=== PATIENT | male | born 2000 | race African-American/Black ===

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

== ENCOUNTER 2023-12-01 16:10 | Emergency (ER) | payer OTHER, SELFPAY ==
--- NOTE | 2023-12-01 18:29 | RAD REPORT ---
EXAMINATION: ONE VIEW CHEST XR CLINICAL INDICATION: Male, 23 years old. [facility] MAIN CHEST PAIN Bed Name: 20 TECHNIQUE: Frontal chest projection is submitted. Examination is limited by patient positioning and t echnique. COMPARISON: 05/16/2009 FINDINGS: The lungs are well inflated and clear. No pneumothorax or sizable effusion. The heart is normal in s ize. IMPRESSION: No acute intrathoracic abnormalities.
--- NOTE | 2023-12-01 18:44 | EDPHYS ---
Physician Documentation [facility] Name: Racehl Malloy Age: 23 yrs Sex: Male : 2000 Arrival Date: 12/01/2023 Time: 16:10 Bed 20 Private MD: ED Physician Lucy Mccabe HPI: 11/30 17:53 This 23 yrs old Black Male presents to ER via Ambulatory with complaints of Asthma gb1 Exacerbation, Chest Pain, Shortness Of Breath. 17:53 23-year-old -[place] male with history of asthma here with the right chest gb1 discomfort and wheezing earlier. Patient's significant other states that he asked his mom to bring an inhaler or any concern that he was wheezing on the right side. Patient denies any fever chills or recent illnesses. Pain does not radiate anywhere on the right side of the chest. . Historical: - Allergies: 16:19 No Known Allergies; cm10 - PMHx: 16:19 Asthma; cm10 - Immunization history:: Adult Immunizations up to date. - Infectious Disease History:: Denies. - Social history:: Smoking status: Patient denies any tobacco usage or history of. Exam: 17:53 Constitutional: This is a well developed, well nourished patient who is awake, alert, gb1 and in no acute distress. Head/Face: Normocephalic, atraumatic. Eyes: Pupils equal round and reactive to light, extra-ocular motions intact. Lids and lashes normal. Conjunctiva and sclera are non-icteric and not injected. Cornea within normal limits. Periorbital areas with no swelling, redness, or edema. ENT: Nares patent. No nasal discharge, no septal abnormalities noted. Tympanic membranes are normal and external auditory canals are clear. Oropharynx with no redness, swelling, or masses, exudates, or evidence of obstruction, uvula midline. Mucous membranes moist. Neck: Trachea midline, no thyromegaly or masses palpated, and no cervical lymphadenopathy. Supple, full range of motion without nuchal rigidity, or vertebral point tenderness. No Meningismus. Chest/axilla: Normal chest wall appearance and motion. Nontender with no deformity. No lesions are appreciated. Cardiovascular: Regular rate and rhythm with a normal S1 and S2. No gallops, murmurs, or rubs. Normal PMI, no JVD. No pulse deficits. Respiratory: Lungs have equal breath sounds bilaterally, clear to auscultation and percussion. No rales, rhonchi or wheezes noted. No increased work of breathing, no retractions or nasal flaring. Abdomen/GI: Soft, non-tender, with normal bowel sounds. No distension or tympany. No guarding or rebound. No evidence of tenderness throughout. Skin: Warm, dry with normal turgor. Normal color with no rashes, no lesions, and no evidence of cellulitis. MS/ Extremity: Pulses equal, no cyanosis. Neurovascular intact. Full, normal range of motion. Neuro: Awake and alert, GCS 15, oriented to person, place, time, and situation. Cranial nerves II-XII grossly intact. Motor strength 5/5 in all extremities. Sensory grossly intact. Cerebellar exam normal. Normal gait. Vital Signs: 16:17 BP 124 / 76; Pulse 94; Resp 16; Temp 97.1; Pulse Ox 99% on R/A; Weight 133.81 kg; cm10 Height 5 ft. 9 in. ; Pain 6/10; 18:47 BP 130 / 74; Pulse 88; Resp 17; Pulse Ox 99% on R/A; rs5 16:17 Body Mass Index 43.56 (133.81 kg, 175.26 cm) cm10 16:17 Pain Scale: Adult cm10 MDM: 16:35 Patient medically screened. gb1 17:53 Data reviewed: vital signs, nurses notes, radiologic studies. gb1 11/30 17:32 Order name: Chest Single View XRAY; Complete Time: 18:41 gb1 Administered Medications: No medications were administered Disposition Summary: 12/01/23 18:44 Discharge Ordered Notes: Location: Home gb1 Problem: new gb1 Symptoms: have improved gb1 Condition: Stable gb1 Diagnosis - Chest pain on breathing gb1 Followup: gb1 - With: Private Physician - When: - Reason: If symptoms return Discharge Instructions: - Discharge Summary Sheet gb1 - Nonspecific Chest Pain, Adult gb1 Forms: - Medication Reconciliation Form gb1 - Antibiotic Education gb1 - Prescription Opioid Use gb1 - Patient Portal Instructions gb1 - Leadership Thank You Letter gb1 Signatures: Dispatcher [employer] Silvia Hazel RN RN cm10 Lucy Mccabe MD MD gb1 Corrections: (The following items were deleted from the chart) 17:33 17:33 Chest Single View+[email or web address] ordered. EDMS EDMS
--- NOTE | 2023-12-01 18:44 | ER ---
Nurse's Notes [facility] Name: Rachel Malloy Age: 23 yrs Sex: Male : 2000 Arrival Date: 12/01/2023 Time: 16:10 Bed 20 Private MD: Diagnosis: Chest pain on breathing Presentation: 11/30 16:17 Chief complaint: Patient states: Right sided chest pain onset this morning. Pt cm10 describes the pain as sharp and pressure. Pt rates the pain a 6/10. Pt states that deep breaths make the pain worse. Coronavirus screen: Client denies travel out of the [place] in the last 14 days. At this time, the client does not indicate any symptoms associated with coronavirus-19. Ebola Screen: Patient denies travel to an Ebola-affected area in the 21 days before illness onset. No symptoms or risks identified at this time. Initial Sepsis Screen: Does the patient meet any 2 criteria? HR > 90 bpm. Does the patient have a suspected source of infection? No. Patient's initial sepsis screen is negative. Risk Assessment: Do you want to hurt yourself or someone else? Patient reports no desire to harm self or others. Onset of symptoms was December 01, 2023. 16:17 Method Of Arrival: Ambulatory cm10 16:17 Acuity: ROBERT 3 cm10 Triage Assessment: 16:19 General: Appears in no apparent distress. comfortable, Behavior is calm, cooperative. cm10 Neuro: No deficits noted. Level of Consciousness is awake, alert, obeys commands, Oriented to person, place, time, situation, Appropriate for age. Respiratory: No deficits noted. Airway is patent Respiratory effort is even, unlabored, Respiratory pattern is regular, symmetrical. Historical: - Allergies: 16:19 No Known Allergies; cm10 - PMHx: 16:19 Asthma; cm10 - Immunization history:: Adult Immunizations up to date. - Infectious Disease History:: Denies. - Social history:: Smoking status: Patient denies any tobacco usage or history of. Screenin:22 [facility] ED Fall Risk Assessment (Adult) History of falling in the last 3 months, rs5 including since admission No falls in past 3 months (0 pts) Confusion or Disorientation No (0 pts) Intoxicated or Sedated No (0 pts) Impaired Gait No (0 pts) Mobility Assist Device Used No (0 pt) Altered Elimination No (0 pt) Score/Fall Risk Level 0 - 2 = Low Risk Oriented to surroundings, Maintained a safe environment. Abuse screen: Denies threats or abuse. Nutritional screening: No deficits noted. Tuberculosis screening: No symptoms or risk factors identified. Assessment: 16:22 General: Appears in no apparent distress. uncomfortable, Behavior is calm, cooperative. rs5 Pain: Complains of pain in abdomen Pain does not radiate. Pain currently is 3 out of 10 on a pain scale. Quality of pain is described as aching, Pain began Is continuous. Neuro: Level of Consciousness is awake, alert, obeys commands, Oriented to person, place, time, situation. Cardiovascular: Patient's skin is warm and dry. Rhythm is regular. Respiratory: Airway is patent Respiratory effort is even, unlabored, Respiratory pattern is regular, symmetrical. Respiratory: Reports shortness of breath cough that is. GI: Abdomen is round non-distended, Abd is soft and non tender X 4 quads. : No signs and/or symptoms were reported regarding the genitourinary system. EENT: No signs and/or symptoms were reported regarding the EENT system. Derm: Skin is intact, Skin is pink, warm \T\ dry. Musculoskeletal: Range of motion: intact in all extremities. 17:49 Reassessment: Patient and/or family updated on plan of care and expected duration. Pain rs5 level reassessed. Patient is alert, oriented x 3, equal unlabored respirations, skin warm/dry/pink. Patient states feeling better. 18:46 Reassessment: Patient and/or family updated on plan of care and expected duration. Pain rs5 level reassessed. Patient is alert, oriented x 3, equal unlabored respirations, skin warm/dry/pink. Patient denies pain at this time. Patient states feeling better. Patient states symptoms have improved. 19:32 Reassessment: previuos RN discharged patient prior to shift change/hand off report. kj2 Vital Signs: 16:17 BP 124 / 76; Pulse 94; Resp 16; Temp 97.1; Pulse Ox 99% on R/A; Weight 133.81 kg; cm10 Height 5 ft. 9 in. ; Pain 6/10; 18:47 BP 130 / 74; Pulse 88; Resp 17; Pulse Ox 99% on R/A; rs5 16:17 Body Mass Index 43.56 (133.81 kg, 175.26 cm) cm10 16:17 Pain Scale: Adult cm10 ED Course: 16:13 Patient arrived in ED. im 16:18 Lucy Mccabe MD is Attending Physician. gb1 16:19 Triage completed. cm10 16:19 Arm band placed on Patient placed in waiting room. EKG completed in triage. Results cm10 shown to MD. 16:20 EKG done, by ED staff, reviewed by Lucy Mccabe MD. cm10 16:22 Patient has correct armband on for positive identification. Placed in gown. Bed in low rs5 position. Call light in reach. Side rails up X2. Client placed on continuous cardiac and pulse oximetry monitoring. NIBP monitoring applied. compliance monitor on. Pulse ox on. 17:16 Dylan Reynoso, RN is Primary Nurse. rs5 17:49 No provider procedures requiring assistance completed. rs5 17:54 Chest Single View XRAY In Process Unspecified. EDMS 19:06 Patient did not have IV access during this emergency room visit. rs5 19:30 Provided Education on: patient discharged by previous shift RN. kj2 19:30 Patient maintains SpO2 saturation greater than 95% on room air. kj2 Administered Medications: No medications were administered Medication: 17:49 VIS not applicable for this client. rs5 Outcome: 18:44 Discharge ordered by . gb1 19:06 Discharged to home ambulatory, rs5 19:06 Condition: stable 19:06 Discharge instructions given to patient, family, Instructed on discharge instructions, follow up and referral plans. Demonstrated understanding of instructions, follow-up care, 19:32 Patient left the ED. kj2 Signatures: Dispatcher [employer] EDNM Dylan Reynoso, RN RN rs5 Jamilah Walter Clarissa RN RN cm10 Lucy Mccabe MD MD gb1 Kaykay Harper RN RN kj2
[2023-12-01 20:16] VITALS: TEMP 97.1; O2SAT 99
[2023-12-01 20:17] VITALS: BP 130/74
--- NOTE | 2023-12-02 16:59 | EKG ---
Test Date: 2023-12-01 Test Time: 16:25:57 Corporate Wellness Coordinator: NOHELIA MEASUREMENT RESULTS: Intervals: Rate: 94 [place]: 154 QRSD: 100 QT: 340 QTc: 425 [place]: P: 64 [place]: 154 QRS: 77 T: 14 INTERPRETIVE STATEMENTS: Normal sinus rhythm Normal ECG No previous ECG available for comparison Electronically Signed On 12-02-23 16:55:02 CDT by Jose Palacios
== END 2023-12-01 19:32 | disposition home or self-care (01) ==
LOC: ER 16:10
DX: R07.1 Chest pain on breathing (principal)
CPT/HCPCS: 71045; 93005; 99284